=== PATIENT | female | born 1980 | race Caucasian/White ===

== ENCOUNTER 2020-04-12 00:40 | Emergency (ER) | payer BC ==
[2020-04-12] MEDS ORDERED: Ondansetron 4 MG Tab.DIS PO ONE (01:34)
--- NOTE | 2020-04-12 01:40 | EDM.PDOC ---
ED HPI GENERAL MEDICAL PROBLEM - General Chief Complaint: Gastrointestinal Problem Stated Complaint: DIARRHA,VOMITING Time Seen by Provider: 04/12/20 01:00 Source of Information: Reports: Patient, Family History Limitations: Reports: No Limitations - History of Present Illness INITIAL COMMENTS - FREE TEXT/NARRATIVE: 39-year-old female with 3 hours of nausea vomiting and watery diarrhea. No pain, no fever, no respiratory symptoms. 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 Onset: Sudden Duration: Hour(s): (Started 3 hours ago) Associated Symptoms: Reports: Loss of Appetite, Malaise, Nausea/Vomiting. Denies: Chest Pain, Cough, Diaphoresis, Fever/Chills, Headaches, Shortness of Breath - Related Data Allergies Allergy/AdvReac Type Severity Reaction Status Date / Time No Known Allergies Allergy Verified 04/12/20 00:59 Home Meds: Home Meds Aspirin [Halfprin] 81 mg PO DAILY 04/12/20 [History] Warfarin [Coumadin] 11.25 mg PO DAILY 04/12/20 [History] Past Medical History Cardiovascular History: Reports: Heart Murmur Other Cardiovascular History: born bicuspid aortic [employer] History: Reports: Other [employer] History: with last child Hematologic History: Reports: Anticoagulation Therapy - Past Surgical History Other Cardiovascular Surgeries/Procedures: 2006 aortic valve replaced, infected sternum GI Surgical History: Reports: Cholecystectomy Social & Family History - Family History Family Medical History: Noncontributory - Tobacco Use Smoking Status *Q: Never Smoker - Alcohol Use Days Per Week of Alcohol Use: 1 Number of Drinks Per Day: 2 Total Drinks Per Week: 2 - Recreational Drug Use Recreational Drug Use: No ED ROS GENERAL - Review of Systems Review Of Systems: See Below Constitutional: Reports: Malaise, Decreased Appetite. Denies: Fever, Chills HEENT: Reports: No Symptoms Respiratory: Denies: Shortness of Breath Cardiovascular: Reports: Other (History of aortic valve replacement). Denies: Chest Pain GI/Abdominal: Reports: Diarrhea, Nausea, Vomiting. Denies: Abdominal Pain, Constipation Neurological: Reports: No Symptoms ED EXAM, GI/ABD - Physical Exam Exam: See Below Exam Limited By: No Limitations General Appearance: Alert, No Apparent Distress (Looks uncomfortable but not distressed) Eyes: Bilateral: Normal Appearance (No jaundice) Throat/Mouth: Normal Inspection Respiratory/Chest: No Respiratory Distress Cardiovascular: Regular Rate, Rhythm GI/Abdominal Exam: Normal Bowel Sounds, Soft, Non-Tender Extremities: No: Pedal Edema Neurological: Alert, Oriented Psychiatric: Normal Affect, Normal Mood Skin Exam: Warm, Dry Course - Vital Signs Last Recorded V/S: Last Vital Signs Temp 96.7 F L 04/12/20 01:00 Pulse 105 H 04/12/20 01:00 Resp 18 04/12/20 01:00 BP 139/86 04/12/20 01:00 Pulse Ox 100 04/12/20 01:00 - Orders/Labs/Meds Meds: Medications Discontinued Medications Generic Name Dose Route Start Last Admin Trade Name Aisha PRN Reason Stop Dose Admin Ondansetron HCl 4 mg 04/12/20 01:34 04/12/20 01:39 Zofran Odt PO 04/12/20 01:35 4 mg ONETIME ONE Administration - Re-Assessments/Exams Free Text/Narrative Re-Assessment/Exam: 04/12/20 01:39 Unfortunately patient does not meet criteria for the rapid COVID testing, and can get over test result back if she just gets tested when she returns to [facility]. She was given 1 4 mg sublingual Zofran, and given 5 additional doses to take over the next 24 hours. Continue hydration with frequent small amounts of fluid. Departure - Departure Time of Disposition: 01:49 Disposition: Home, Self-Care 01 Clinical Impression: Gastroenteritis - Discharge Information Instructions: Viral Gastroenteritis, Adult, [id number] Referrals: PCP,None [Primary Care Provider] - Forms: ED Department Discharge Care Plan Goals: Frequent small amounts of fluid does maintain hydration is recommended over the next 12 hours then increasing activity and diet as tolerated. Consider rechecking if not improved in the next 24 hours. Use Zofran as directed for nausea and vomiting. Sepsis Event Note (ED) - Evaluation Sepsis Screening Result: No Definite Risk - Focused Exam Vital Signs: Vital Signs Temp Pulse Resp BP Pulse Ox 04/12/20 01:00 96.7 F L 105 H 18 139/86 100 04/12/20 00:58 96.7 F L 105 H 18 139/86 100
== END 2020-04-12 01:50 | disposition home or self-care (01) ==
LOC: JP.ED 00:40
DX: K52.9 Noninfective gastroenteritis and colitis, unspecified (principal); Z79.01 Long term (current) use of anticoagulants; Z79.82 Long term (current) use of aspirin
CPT/HCPCS: 99283; A9270